=== PATIENT | female | born 1990 | race Caucasian/White ===

== ENCOUNTER 2019-01-27 18:05 | Inpatient (IN) | payer BC ==
[2019-01-27] MEDS ORDERED: AMPICILLIN SODIUM 2 GM VIAL ONE (20:16)
[2019-01-27] MEDS ORDERED: AMPICILLIN - 2 GM in SODIUM CHLORIDE 100 ML IVPB STA (20:30)
[2019-01-27] MEDS ORDERED: BUTORPHANOL TARTRATE 1 MG/ML VIAL ONE ×2 (21:21)
[2019-01-27] MEDS ORDERED: PROMETHAZINE HCL 25 MG/1 ML VIAL ONE (21:21)
[2019-01-27 21:22] LABS: BASO % 0.2 % (0-2.0); EOS % 0.8 % (0-4.5); HEMATOCRIT 36.3 % (32.4-45.2); HEMOGLOBIN 12.8 GM/dL (10.7-15.3); LYMPH % 17.5 % (8-40); MCH 32.7 pg (25.7-33.7); MCHC 35.2 g/dl (32.0-36.0); MEAN CELL VOLUME 92.7 fl (80-96); MEAN PLT VOLUME 8.9 fl (7.5-11.1); MONO % 5.6 % (3.8-10.2); NEUT % 75.9 % (42.8-82.8); PLATELET COUNT 184 K/MM3 (134-434); RBC 3.92 M/mm3 (3.60-5.2); RDW 13.2 % (11.6-15.6); WHITE BLOOD COUNT 10.5 K/mm3 (4.0-10.0)
[2019-01-27] MEDS ORDERED: DEXTROSE 5%-LACTATED RINGERS 1,000 ML IV SCH ×2 (21:45→22:00)
[2019-01-27 21:47] LABS: INR 0.88 (0.83-1.09); PROTHROMBIN TIME (PATIENT) 10.4 SEC (9.7-13.0)
[2019-01-27 21:49] LABS: ANION GAP 9 MMOL/L (8-16); BLOOD UREA NITROGEN 12 mg/dL (7-18); CALCIUM 8.4 mg/dL (8.5-10.1); CHLORIDE 106 mmol/L (98-107); CO2 20 mmol/L (21-32); CREATININE 0.4 mg/dL (0.55-1.3); GLUCOSE,RANDOM 73 mg/dL (74-106); SODIUM 135 mmol/L (136-145)
[2019-01-27] MEDS ORDERED: BUTORPHANOL TARTRATE 1 MG/ML VIAL IVPB ONE (21:55)
[2019-01-27] MEDS ORDERED: PROMETHAZINE HCL 25 MG/1 ML VIAL IVPUSH ONE (21:55)
--- NOTE | 2019-01-27 21:55 | HP ---
Past Medical History - Primary Care Physician PCP:: Juani Rodriguez - Admission Chief Complaint: 29yo 38.3wks with LOF, clear at 7:30am, mild contructions , no VB, + FM History of Present Illness: 1. Cell free DNA- Genetic screening neg 2. GBS pos - for Ampicillin prophylaxis 3. Flu shot given History Source: Patient Limitations to Obtaining History: No Limitations - Past Medical History ...: 1 ...Para: 0 ...Term: 0 ...: 0 ...Spon : 0 ...Induced : 0 ...LMP: 04/29/18 ... Weeks Gestation by Dates: 39 ...EDC by Dates: 02/03/19 ...EDC by Sono: 02/06/19 - Past Surgical History Past Surgical History: Yes: None Hx Myomectomy: No Hx Transabdominal Cerclage: No - Smoking History Have you smoked in the past 12 months: No - Alcohol/Substance Use Hx Alcohol Use: No History of Substance Use: reports: None - Social History Usual Living Arrangement: Yes: With Spouse Home Medications - Allergies Allergies/Adverse Reactions: Allergies Allergy/AdvReac Type Severity Reaction Status Date / Time No Known Allergies Allergy Verified 01/27/19 19:01 - Home Medications Home Medications: Ambulatory Orders Vitamins (Sjr) - 1 tab PO DAILY 10/28/18 Family Disease History - Family Disease History Family History: Denies Review of Systems - Review of Systems Constitutional: reports: No Symptoms Eyes: reports: No Symptoms HENT: reports: No Symptoms Neck: reports: No Symptoms Cardiovascular: reports: No Symptoms Respiratory: reports: No Symptoms Gastrointestinal: reports: No Symptoms Genitourinary: reports: Other (LOF and + contructions) Breasts: reports: No Symptoms Reported Musculoskeletal: reports: No Symptoms Integumentary: reports: No Symptoms Neurological: reports: No Symptoms Endocrine: reports: No Symptoms Hematology/Lymphatic: reports: No Symptoms Psychiatric: reports: No Symptoms Physical Exam - Maternity Vital Signs: Vital Signs Temperature 98.4 F 01/27/19 21:00 Pulse Rate 83 01/27/19 21:00 Respiratory Rate 18 01/27/19 21:00 Blood Pressure 136/71 01/27/19 21:00 O2 Sat by Pulse Oximetry (%) Constitutional: Yes: Well Nourished, No Distress, Calm Eyes: Yes: WNL, Conjunctiva Clear HENT: Yes: WNL, Atraumatic, Normocephalic Neck: Yes: WNL, Supple, Trachea Midline Cardiovascular: Yes: WNL, Regular Rate and Rhythm Lungs: Clear to auscultation Breast(s): Yes: WNL - Abdominal Exam/OB Fundal Height: 38 (EFW 6.5lb) Number of Fetuses: Single Presentation: Vertex Contractions: Yes Regularity: Irregular Intensity: Mild Monitor Mode: External Heart Rate (range): 140s Heart Rate Location: Midline Category: I Accelerations: Uniform Decelerations: None - Vaginal Exam/OB Vaginal Bleediing: No Speculum Exam: No Dilatation (cm): 1 Effacement (%): 80 Amniotic Membrane Status: Ruptured Nitrazine Test: Positive Amniotic Fluid: Yes: Clear Presentation: Vertex/Position Station: -3 - Physical Exam Musculoskeletal: Yes: WNL Extremities: Yes: WNL Edema: No Integumentary: Yes: WNL ...Motor Strength: WNL Psychiatric: Yes: WNL, Alert, Oriented - Labs Lab Results: Apos/RI/HBneg/HIV neg/RPR nr/GCT-81/GBS pos CBC, BMP 01/27/19 20:45 01/27/19 20:45 Assessment/Plan 29yo P1 @ 38.2 wks with PROM, clear fluid in early labor Admit to L&D IVF, Labs Ampicillin for GBS prophylaxis Pain meds Stadol/Phenergan as per patient request MF status reassuring EFW 6.5lb anticipate
[2019-01-27] MEDS ORDERED: OXYTOCIN 30 UNITS in 0.9% NS 30 UNIT/500 ML INFUS.BAG IVPB ONE (22:33)
[2019-01-27] MEDS ORDERED: OXYTOCIN 30 UNITS in 0.9% NS 30 UNIT/500 ML INFUS.BAG IVPB SCH (22:45)
[2019-01-27 23:42] VITALS: BMI 27.1
[2019-01-28] MEDS: AMPICILLIN - 1 GM in SODIUM CHLORIDE 100 ML IVPB SCH ×5 (00:30→14:16)
[2019-01-28] MEDS ORDERED: AMPICILLIN SODIUM 1 GM VIAL ONE ×2 (00:54→04:28)
[2019-01-28] MEDS ORDERED: FENTANYL/BUPIVACAINE/NS/PF - PCEA - 50 ML DISP.SYRIN EP ONE (00:55)
[2019-01-28] MEDS ORDERED: NALOXONE HCL 0.4 MG/ML VIAL IVPUSH PRN (02:36)
[2019-01-28] MEDS ORDERED: FENTANYL/BUPIVACAINE/NS/PF - PCEA - 50 ML DISP.SYRIN EP SCH (02:45)
--- NOTE | 2019-01-28 04:29 | PN ---
Progress Note, Labor Vaginal Exam #1 Labor Exam Date: 01/28/19 Labor Exam Time: 04:05 Heart Rate (range): 140 Dilatation: FD Effacement (%): 100 Amniotic Membrane Status: Ruptured Presentation: Vertex/Position Station: 0 Remarks: Called to evaluate FHR due to two HR decelerations Good variability FHR normalized without any intervention will await passive head descent since overall MF status reassuring
[2019-01-28] MEDS ORDERED: OXYTOCIN 20 UNITS in 0.9% NS 20 UNIT/1,000 ML INFUS.BAG IV ONE ×2 (06:15→08:45)
--- NOTE | 2019-01-28 07:47 | PN ---
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
[2019-01-28] MEDS ORDERED: ACETAMINOPHEN 325 MG TABLET (FP) ONE (10:53)
[2019-01-28] MEDS ORDERED: ACETAMINOPHEN 325 MG TABLET (FP) PO ONE (14:00)
[2019-01-28] MEDS ORDERED: ACETAMINOPHEN 325 MG TABLET (FP) PO PRN (16:24)
[2019-01-28] MEDS: ACETAMINOPHEN/CAFFEINE/BUTALBITAL 1 TAB PO PRN (16:32)
[2019-01-28] MEDS ORDERED: oxyCODONE HCL 5 MG TABLET PO PRN (17:28)
[2019-01-28] MEDS: IBUPROFEN 600 MG TABLET (FP) PO PRN (21:40)
[2019-01-28] MEDS: diphenhydrAMINE HCL 25 MG CAPSULE (FP) PO PRN (21:40)
[2019-01-29] MEDS: IBUPROFEN 600 MG TABLET (FP) PO PRN (07:57)
--- NOTE | 2019-01-29 08:51 | PN ---
Post Progress Note - Subjective Subjective: Patient without acute complaints. Reports tolerating oral intake without nausea or vomiting. Ambulating without dizziness. Denies fevers or chills. Pain well controlled with oral pain medication. without difficulty. Passing flatus. c/o some spinal CONNOR took Fioricet yesterday with some relief Post Day: 1 Type of Delivery: Vital Signs: Vital Signs Temperature 98.2 F 01/28/19 21:38 Pulse Rate 70 01/28/19 21:38 Respiratory Rate 20 01/28/19 21:38 Blood Pressure 121/74 01/28/19 21:38 O2 Sat by Pulse Oximetry (%) 99 01/28/19 06:15 Breast Exam: Yes: Soft Uterus: Yes: Fundus Firm, Non-tender Abdomen/GI: Yes: Abdomen soft, Passing flatus, Tolerating PO Lochia: Yes: Rubra Lochia, amount: Small Extremities: Yes: Calves non-tender Perineum: Yes: Episiotomy Activity: Ambulating - Labs Labs: CBC WBC 10.5 K/mm3 (4.0-10.0) H 01/27/19 20:45 RBC 3.92 M/mm3 (3.60-5.2) 01/27/19 20:45 Hgb 12.8 GM/dL (10.7-15.3) 01/27/19 20:45 Hct 36.3 % (32.4-45.2) 01/27/19 20:45 MCV 92.7 fl (80-96) 01/27/19 20:45 MCH 32.7 pg (25.7-33.7) 01/27/19 20:45 MCHC 35.2 g/dl (32.0-36.0) 01/27/19 20:45 RDW 13.2 % (11.6-15.6) 01/27/19 20:45 Plt Count 184 K/MM3 (134-434) 01/27/19 20:45 MPV 8.9 fl (7.5-11.1) 01/27/19 20:45 Absolute Neuts (auto) 7.9 K/mm3 (1.5-8.0) 01/27/19 20:45 Neutrophils % 75.9 % (42.8-82.8) 01/27/19 20:45 Lymphocytes % 17.5 % (8-40) 01/27/19 20:45 Monocytes % 5.6 % (3.8-10.2) 01/27/19 20:45 Eosinophils % 0.8 % (0-4.5) 01/27/19 20:45 Basophils % 0.2 % (0-2.0) 01/27/19 20:45 Nucleated RBC % 0 % (0-0) 01/27/19 20:45 Assessment/Plan 29yo P 1 now s/p PPD # 1 VSS, Afebrile Doing well Rhpos no need for RhoGam Cont. Fioricet, caffeine for spinal CONNOR - stable otherwise will request Anesthesia assistance continue routine care will follow labs
[2019-01-29] MEDS: ACETAMINOPHEN/CAFFEINE/BUTALBITAL 1 TAB PO PRN ×3 (11:15→20:24)
[2019-01-29 12:55] LABS: BASO % 0.1 % (0-2.0); EOS % 0.7 % (0-4.5); HEMATOCRIT 33.7 % (32.4-45.2); HEMOGLOBIN 11.5 GM/dL (10.7-15.3); LYMPH % 16.1 % (8-40); MCH 32.2 pg (25.7-33.7); MCHC 34.2 g/dl (32.0-36.0); MEAN CELL VOLUME 94.1 fl (80-96); MEAN PLT VOLUME 7.8 fl (7.5-11.1); MONO % 6.6 % (3.8-10.2); NEUT % 76.5 % (42.8-82.8); PLATELET COUNT 168 K/MM3 (134-434); RBC 3.58 M/mm3 (3.60-5.2); RDW 13.3 % (11.6-15.6); WHITE BLOOD COUNT 11.6 K/mm3 (4.0-10.0)
[2019-01-29] MEDS: diphenhydrAMINE HCL 25 MG CAPSULE (FP) PO PRN (20:28)
[2019-01-30] MEDS: ACETAMINOPHEN/CAFFEINE/BUTALBITAL 1 TAB PO PRN ×2 (07:55→12:08)
[2019-01-30 08:12] VITALS: BP 119/69; PULSE 74; TEMP 98
--- NOTE | 2019-01-30 08:58 | PN ---
Progress Note (short form) - Note Progress Note: Procedure Note Epidural blood patch Called to evaluate pt with known post dural puncture headache Consent obtained In steril fashion L3-4 postion lidocaine local 17G tuohy needle x 2 +DOUG -heme or paresthesia 20cc blood from right arm obtained by Dr. Pan Blood injected Pt tolerated procedure well. Pt instructed to lying down for about an hour Instructions given to the nurse in the room Sivakumar Grewal MD
--- NOTE | 2019-01-30 09:47 | DS ---
Physical Exam-DIRECTOR STAGE Vital Signs: Vital Signs Temperature 98 F 01/30/19 08:11 Pulse Rate 74 01/30/19 08:11 Respiratory Rate 18 01/30/19 08:11 Blood Pressure 119/69 01/30/19 08:11 O2 Sat by Pulse Oximetry (%) 99 01/28/19 06:15 Constitutional: Yes: Well Nourished, No Distress, Calm Eyes: Yes: WNL, Conjunctiva Clear HENT: Yes: WNL, Atraumatic, Normocephalic Neck: Yes: WNL, Supple, Trachea Midline Cardiovascular: Yes: WNL, Regular Rate and Rhythm Respiratory: Yes: WNL, Regular, CTA Bilaterally Gastrointestinal: Yes: WNL, Normal Bowel Sounds, Soft Pelvis: Yes: WNL External Genitalia: Yes: Normal Internal Exam Deferred: Yes ....Post : Yes: Uterus firm, Uterus non-tender Breast(s): Yes: WNL Musculoskeletal: Yes: WNL Extremities: Yes: WNL Edema: No Integumentary: Yes: WNL Neurological: Yes: WNL, Alert, Oriented ...Motor Strength: WNL Psychiatric: Yes: WNL, Alert, Oriented Labs: CBC, BMP 01/29/19 12:49 01/27/19 20:45 Delivery - Delivery Vaginal Delivery: No Problems Type of Anesthesia: Epidural Episiotomy/Laceration: Midline EBL (cc): 400 Delivery, Single - Stages of Labor Date 1st Stage Initiatied: 01/28/19 Time 1st Stage Initiated: 00:40 Date 2nd Stage Initiated: 01/28/19 Time 2nd Stage Initiated: 04:05 Date of Delivery: 01/28/19 Time of Delivery: 07:15 Time Placenta Delivered: 07:18 Placenta: Yes: Spontaneous - 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 Gender: Female Weight: 5 lb 14 oz Position: Left, OA Total Hours ROM (Hrs/Mins): 11:45 hours - 1 Minute Total Score: 9 5 Minutes Total Score: 10 - Feeding Plan Initial Plan: Exclusive throughout hospitalization Benefits of Exclusively reinforced: Yes Remarks - Remarks Remarks: Uncomplicated delivery of the head and shoulders Cord blood and tissue collection as per family request Discharge Summary Reason For Visit: LABOR Procedures: Principal: Normal vaginal delivery Hospital Course: complicated by wet tap, requiring blood patch by anesthesia Condition: Good - Instructions Diet, Activity, Other Instructions: Physical activity Resume your normal everyday activity as tolerated no heavy lifting or exercise until seen by your surgeon. You may walk unlimited ananth of and climb stairs. You may resume driving the car when you feel safe and comfortable behind the wheel. No sexual activity as instructed. Wound care If you have a bandage, leave it on, and keep dry for 48-72 hours. After that time discard the outer bandage. If they are tapes on the skin under the out of bandage leave them in place. They will peel off in the next 7 to 10 days. Do Not Peel them off. You may shower the day after surgery. If there are tapes present on the skin, you may shower over them. Diet There are no dietary restrictions. Eat healthy, high-fiber foods. Drink 6 to 8 glasses of liquid each day. This will assist in keeping your bowels are regular. Pain management You may take Tylenol or acetaminophen or Ibuprofen (for example, Motrin, Advil etc.) from my pain prescription medication is ordered should be taken as prescribed for moderate to severe pain. Call MD for any of the following: Severe pain not relieved by medication Fever of 101 or higher Excessive bleeding or drainage on dressing Inability to urinate Referrals: Omar Freeman MD [Staff Physician] - Disposition: HOME - Home Medications Comprehensive Discharge Medication List: Ambulatory Orders Vitamins (Sjr) - 1 tab PO DAILY 10/28/18
--- NOTE | 2019-01-30 09:47 | PN ---
Post Progress Note Post Day: 2 Type of Delivery: Vital Signs: Vital Signs Temperature 98 F 01/30/19 08:11 Pulse Rate 74 01/30/19 08:11 Respiratory Rate 18 01/30/19 08:11 Blood Pressure 119/69 01/30/19 08:11 O2 Sat by Pulse Oximetry (%) 99 01/28/19 06:15 Breast Exam: Yes: Soft Uterus: Yes: Fundus Firm Abdomen/GI: Yes: Abdomen soft Lochia: Yes: Rubra Lochia, amount: Small Extremities: Yes: Calves non-tender Perineum: Yes: Episiotomy Activity: Ambulating - Labs Labs: CBC WBC 11.6 K/mm3 (4.0-10.0) H 01/29/19 12:49 RBC 3.58 M/mm3 (3.60-5.2) L 01/29/19 12:49 Hgb 11.5 GM/dL (10.7-15.3) 01/29/19 12:49 Hct 33.7 % (32.4-45.2) 01/29/19 12:49 MCV 94.1 fl (80-96) 01/29/19 12:49 MCH 32.2 pg (25.7-33.7) 01/29/19 12:49 MCHC 34.2 g/dl (32.0-36.0) 01/29/19 12:49 RDW 13.3 % (11.6-15.6) 01/29/19 12:49 Plt Count 168 K/MM3 (134-434) 01/29/19 12:49 MPV 7.8 fl (7.5-11.1) D 01/29/19 12:49 Absolute Neuts (auto) 8.9 K/mm3 (1.5-8.0) H 01/29/19 12:49 Neutrophils % 76.5 % (42.8-82.8) 01/29/19 12:49 Lymphocytes % 16.1 % (8-40) 01/29/19 12:49 Monocytes % 6.6 % (3.8-10.2) 01/29/19 12:49 Eosinophils % 0.7 % (0-4.5) 01/29/19 12:49 Basophils % 0.1 % (0-2.0) 01/29/19 12:49 Nucleated RBC % 0 % (0-0) 01/29/19 12:49 Assessment/Plan 29yo P 1 now s/p PPD # 2 VSS, Afebrile Doing well Rhpos no need for RhoGam Cont. Fioricet, caffeine for spinal CONNOR -s/p blood patch once feels improved will d/c home
[2019-01-30] MEDS ORDERED: ACETAMINOPHEN 1000 MG/100 ML VIAL (NON FORMULARY) IVPB PRN (13:30)
--- NOTE | 2019-01-30 13:35 | PN ---
Progress Note (short form) - Note Progress Note: Pt still with CONNOR after epidural blood patch. Will restart IV fluids, start on IV ofirmev and IV toradol for now. Would be a good idea to keep tonight for observation rather thatn discharging, with the likelihood of being re-admitted. Will follow
[2019-01-30] MEDS ORDERED: LACTATED RINGERS SOLUTION 1,000 ML/1,000 ML INFUS.BAG IV SCH (13:45)
[2019-01-30] MEDS ORDERED: KETOROLAC TROMETHAMINE 30 MG/1 ML VIAL IVPUSH SCH (14:00)
[2019-01-30] MEDS: KETOROLAC TROMETHAMINE 30 MG/1 ML VIAL IVPUSH SCH ×2 (14:06→18:18)
--- NOTE | 2019-01-30 18:51 | PN ---
Post Progress Note - Subjective Subjective: Feels better after blood patch, spinal CONNOR improved. The pt requested to go home. Post Day: 2 Type of Delivery: Vital Signs: Vital Signs Temperature 98 F 01/30/19 08:11 Pulse Rate 74 01/30/19 08:11 Respiratory Rate 18 01/30/19 08:11 Blood Pressure 119/69 01/30/19 08:11 O2 Sat by Pulse Oximetry (%) 99 01/28/19 06:15 Breast Exam: Yes: Soft Uterus: Yes: Fundus Firm, Fundus below umbilicus, Non-tender Abdomen/GI: Yes: Abdomen soft Lochia: Yes: Rubra Lochia, amount: Small Extremities: Yes: Calves non-tender Perineum: Yes: Intact Activity: Ambulating - Labs Labs: CBC WBC 11.6 K/mm3 (4.0-10.0) H 01/29/19 12:49 RBC 3.58 M/mm3 (3.60-5.2) L 01/29/19 12:49 Hgb 11.5 GM/dL (10.7-15.3) 01/29/19 12:49 Hct 33.7 % (32.4-45.2) 01/29/19 12:49 MCV 94.1 fl (80-96) 01/29/19 12:49 MCH 32.2 pg (25.7-33.7) 01/29/19 12:49 MCHC 34.2 g/dl (32.0-36.0) 01/29/19 12:49 RDW 13.3 % (11.6-15.6) 01/29/19 12:49 Plt Count 168 K/MM3 (134-434) 01/29/19 12:49 MPV 7.8 fl (7.5-11.1) D 01/29/19 12:49 Absolute Neuts (auto) 8.9 K/mm3 (1.5-8.0) H 01/29/19 12:49 Neutrophils % 76.5 % (42.8-82.8) 01/29/19 12:49 Lymphocytes % 16.1 % (8-40) 01/29/19 12:49 Monocytes % 6.6 % (3.8-10.2) 01/29/19 12:49 Eosinophils % 0.7 % (0-4.5) 01/29/19 12:49 Basophils % 0.1 % (0-2.0) 01/29/19 12:49 Nucleated RBC % 0 % (0-0) 01/29/19 12:49 Assessment/Plan 29yo P1 s/p complicated by spinal CONNOR. Now pt improved and feels wel.. She is okay to be discharge. care and precautions discussed. Pt to call MD if CONNOR or any other issues.
== END 2019-01-30 19:00 | disposition home or self-care (01) | DRG 807 ==
LOC: JDEL 18:05 → JLDR 19:45 → J3W 01-28 14:11
PROVIDERS: ADMIT Obstetrics & Gynecology; ATTEND Obstetrics & Gynecology
PROC: 10E0XZZ Delivery of Products of Conception, External Approach (ICD-10-PCS; principal; 2019-01-28)
PROC: 0W8NXZZ Division of Female Perineum, External Approach (ICD-10-PCS; 2019-01-28)
PROC: 3E0R3GC Introduction of Other Therapeutic Substance into Spinal Canal, Percutaneous Approach (ICD-10-PCS; 2019-01-30)
DX: O42.02 Full-term premature rupture of membranes, onset of labor within 24 hours of rupture (principal); Z37.0 Single live birth; O76 Abnormality in fetal heart rate and rhythm complicating labor and delivery; O99.824 Streptococcus B carrier state complicating childbirth; O89.4 Spinal and epidural anesthesia-induced headache during the puerperium; Z3A.38 38 weeks gestation of pregnancy
CPT/HCPCS: 36415; 59025; 59409; 76801-TC; 80048; 85025; 85610; 85730; 86480; 86762; 86850; 86900; 86901

== ENCOUNTER 2019-02-01 09:24 | Emergency (ER) | payer BC ==
[2019-02-01 09:44] VITALS: TEMP 98.3; BMI 25.1
--- NOTE | 2019-02-01 09:51 | PDOC ---
History of Present Illness - General History Source: Patient Exam Limitations: No Limitations - History of Present Illness Initial Comments: 02/01/19 10:04 The patient is a 29 year old female with no past medical history here today for evaluation of headache. The patient reports that she received an epidural during childbirth on 01/28/19 and has had a headache since then. She notes that her headache has been getting worse since then and is worse with standing. She reports getting a blood patch on 01/30/19 and has been taking motrin 800 mg with no relief. Patient denies headache, lightheadedness. Denies fever, chills. Denies chest pain, shortness of breath. Denies nausea, vomiting, diarrhea, abdominal pain. Allergies: NKA PCP: Greg Young <Gab Obrien - Last Filed: 02/01/19 11:07> <Danii Blackwood - Last Filed: 02/01/19 15:10> - General Chief Complaint: Pain Stated Complaint: SENT BY DR. LUQUE Time Seen by Provider: 02/01/19 09:50 Past History <Gab Obrien - Last Filed: 02/01/19 11:07> - Past Medical History Asthma: No Cancer: No Cardiac Disorders: No Diabetes: No HTN: No Seizures: No Thyroid Disease: No - Suicide/Smoking/Psychosocial Hx Smoking History: Unknown if ever smoked Have you smoked in the past 12 months: No Hx Alcohol Use: No Drug/Substance Use Hx: No Hx Substance Use Treatment: No <Danii Blackwood - Last Filed: 02/01/19 15:10> - Past Medical History Allergies/Adverse Reactions: Allergies Allergy/AdvReac Type Severity Reaction Status Date / Time No Known Allergies Allergy Verified 01/27/19 19:01 Home Medications: Ambulatory Orders Acetaminophen/Caffeine/Butalb [Fioricet -] 1 tab PO BID PRN #10 tablet MDD 2 05/17 Review of Systems - Review of Systems Able to Perform ROS?: Yes Comments:: 02/01/19 10:04 GENERAL/CONSTITUTIONAL: +headache. No fever or chills. No weakness. HEAD, EYES, EARS, NOSE AND THROAT: No change in vision. No ear pain or discharge. No sore throat. CARDIOVASCULAR: No chest pain or shortness of breath. RESPIRATORY: No cough, wheezing, or hemoptysis. GASTROINTESTINAL: No nausea, vomiting, diarrhea or constipation. GENITOURINARY: No dysuria, frequency, or change in urination. MUSCULOSKELETAL: No joint or muscle swelling or pain. No neck or back pain. SKIN: No rash NEUROLOGIC: No vertigo, loss of consciousness, or change in strength/sensation. ENDOCRINE: No increased thirst. No abnormal weight change. HEMATOLOGIC/LYMPHATIC: No anemia, easy bleeding, or history of blood clots. ALLERGIC/IMMUNOLOGIC: No hives or skin allergy. <Gab Obrien - Last Filed: 02/01/19 11:07> *Physical Exam - Vital Signs Last Vital Signs Temp Pulse Resp BP Pulse Ox 98.3 F 69 18 125/76 100 02/01/19 09:43 02/01/19 09:43 02/01/19 09:43 02/01/19 09:43 02/01/19 09:43 - Physical Exam Comments: 02/01/19 10:04 GENERAL: The patient appears to be in pain. Patient unable to sit up due to pain. HEAD: Normal with no signs of trauma. EYES: +photophobia, patient wearing sunglasses. PERRLA, EOMI, sclera anicteric, conjunctiva clear. ENT: Ears normal, nares patent, oropharynx clear without exudates. Moist mucous membranes. NECK: Normal range of motion, supple without lymphadenopathy, JVD, or masses. LUNGS: Breath sounds equal, clear to auscultation bilaterally. No wheezes, and no crackles. HEART:Regular rate and rhythm, normal S1 and S2 without murmur, rub or gallop. ABDOMEN: Soft, nontender, normoactive bowel sounds. No guarding, no rebound. No masses palpable. EXTREMITIES: Normal range of motion, no edema. No clubbing or cyanosis. No erythema, or tenderness. NEUROLOGICAL: Cranial nerves II through XII grossly intact. Normal speech. No focal neurological deficits. MUSCULOSKELETAL: Back non-tender to palpation, no CVA tenderness SKIN: Warm, Dry, normal turgor, no rashes or lesions noted. <Gab Obrien - Last Filed: 02/01/19 11:07> - Vital Signs Last Vital Signs Temp Pulse Resp BP Pulse Ox 98.3 F 69 18 125/76 100 02/01/19 09:43 02/01/19 09:43 02/01/19 09:43 02/01/19 09:43 02/01/19 09:43 <Danii Blackwood - Last Filed: 02/01/19 15:10> Moderate Sedation - Procedure Monitoring Vital Signs: Procedure Monitoring Vital Signs Temperature 98.3 F 02/01/19 09:43 Pulse Rate 69 02/01/19 09:43 Respiratory Rate 18 02/01/19 09:43 Blood Pressure 125/76 02/01/19 09:43 O2 Sat by Pulse Oximetry (%) 100 02/01/19 09:43 <aGb Obrien - Last Filed: 02/01/19 11:07> - Procedure Monitoring Vital Signs: Procedure Monitoring Vital Signs Temperature 98.3 F 02/01/19 09:43 Pulse Rate 69 02/01/19 09:43 Respiratory Rate 18 02/01/19 09:43 Blood Pressure 125/76 02/01/19 09:43 O2 Sat by Pulse Oximetry (%) 100 02/01/19 09:43 <Danii Blackwood - Last Filed: 02/01/19 15:10> ED Treatment Course - LABORATORY CBC & Chemistry Diagram: 02/01/19 10:10 02/01/19 10:06 <Gab Obrien - Last Filed: 02/01/19 11:07> - LABORATORY CBC & Chemistry Diagram: 02/01/19 10:10 02/01/19 10:06 <Danii Blackwood - Last Filed: 02/01/19 15:10> Medical Decision Making - Medical Decision Making Call placed at 9:[address] Grewal, spoke to his associate who will try to reach Dr. Grewal. Call placed at 10:[address] Barone, awaiting call back. Call placed to Dr. Barone at 10:50 AM, case discussed. <Gab Obrien - Last Filed: 02/01/19 11:07> - Medical Decision Making 02/01/19 09:55 29 yo F s/p epidural on 01/27 Since that time she has had intractable headache S/p blood patch on 01/30 Pt reports her 02/01/19 09:56 02/01/19 10:[address] Barone Consider MRI r/o dural sinus thrombosis 02/01/19 14:56 Upon re assessment, pt sate she feels much better Pt is upright with no pain Will refil fiorecet 02/01/19 15:04 Laboratory Tests 02/01/19 02/01/19 10:06 10:10 WBC 7.3 Hgb 13.1 Hct 38.0 Plt Count 188 BUN 13 Creatinine 0.5 L <Danii Blackwood - Last Filed: 02/01/19 15:10> *DC/Admit/Observation/Transfer - Attestations Scribe Attestion: 02/01/19 10:05 Documentation prepared by MIKA Fisher, acting as medical cost consultant for Danii Blackwood MD. <Gab Obrien - Last Filed: 02/01/19 11:07> - Discharge Dispostion Decision to Admit order: No <Danii Blackwood - Last Filed: 02/01/19 15:10> Diagnosis at time of Disposition: Post-dural puncture headache - Discharge Dispostion Disposition: HOME Condition at time of disposition: Stable - Referrals Referrals: Greg Young MD [Primary Care Provider] - - Patient Instructions Printed Discharge Instructions: DI for Post-Spinal Puncture Headache Additional Instructions: Thank you for coming in to the ER for re assessment You can take Fiorecet for pain If your symptoms change or worsen, OR if you develop any new symptoms please return to the ER for re assessment
[2019-02-01] MEDS ORDERED: ACETAMINOPHEN 1000 MG/100 ML VIAL (NON FORMULARY) IVPB ONE (09:56)
[2019-02-01] MEDS ORDERED: SODIUM CHLORIDE 1,000 ML IV STA (09:56)
[2019-02-01] MEDS ORDERED: ACETAMINOPHEN/CAFFEINE/BUTALBITAL 1 TAB PO ONE (10:01)
[2019-02-01] MEDS ORDERED: ACETAMINOPHEN/CAFFEINE/BUTALBITAL 1 TAB ONE (10:17)
[2019-02-01 10:18] LABS: BASO % 0.2 % (0-2.0); EOS % 1.2 % (0-4.5); HEMOGLOBIN 13.1 GM/dL (10.7-15.3); LYMPH % 16.9 % (8-40); MCH 32.5 pg (25.7-33.7); MCHC 34.5 g/dl (32.0-36.0); MEAN CELL VOLUME 94.2 fl (80-96); MEAN PLT VOLUME 7.5 fl (7.5-11.1); MONO % 4.5 % (3.8-10.2); NEUT % 77.2 % (42.8-82.8); PLATELET COUNT 188 K/MM3 (134-434); RBC 4.04 M/mm3 (3.60-5.2); RDW 13.1 % (11.6-15.6); WHITE BLOOD COUNT 7.3 K/mm3 (4.0-10.0)
[2019-02-01 11:05] LABS: ALBUMIN 3.2 g/dl (3.4-5.0); ALK PHOS 74 U/L (45-117); ANION GAP 8 MMOL/L (8-16); BILIRUBIN,TOTAL 0.2 mg/dL (0.2-1); BLOOD UREA NITROGEN 13 mg/dL (7-18); CALCIUM 8.4 mg/dL (8.5-10.1); CHLORIDE 107 mmol/L (98-107); CO2 25 mmol/L (21-32); CREATININE 0.5 mg/dL (0.55-1.3); GLUCOSE,RANDOM 88 mg/dL (74-106); POTASSIUM 3.9 mmol/L (3.5-5.1); SGOT/AST 25 U/L (15-37); SGPT/ALT 40 U/L (13-61); SODIUM 140 mmol/L (136-145); TOT PROT 6.7 g/dl (6.4-8.2)
--- NOTE | 2019-02-01 11:28 | PN ---
Progress Note (short form) - Note Progress Note: Anesthesia Called to put an epidural blood patch for pt with known post dural puncture headache. After consent was obtained monitors applied. In sterile fashion 17 G tuoy needle inserted x 2 + Vangie 20cc blood from left arm drawn by ER nurse injected Pt complain of back spasm but subsided Vital signs stable Will reevaluate in the ER. later. Pt tolerated procedure well. Sivakumar Grewal
[2019-02-01] MEDS ORDERED: MAGNESIUM CITRATE 300 ML BOTTLE ONE (15:17)
[2019-02-01 15:34] VITALS: BP 130/65; PULSE 75
== END 2019-02-01 15:32 | disposition home or self-care (01) ==
LOC: JER 09:24
PROC: 3E0337Z Introduction of Electrolytic and Water Balance Substance into Peripheral Vein, Percutaneous Approach (ICD-10-PCS; principal; 2019-02-01)
DX: R51 Headache (principal); G97.1 Other reaction to spinal and lumbar puncture
CPT/HCPCS: 36415; 70450-TC; 80053; 85025; 99284-25; J7030

== ENCOUNTER 2021-08-02 08:42 | Inpatient (IN) | payer BC, OTHER ==
[2021-08-02 10:11] VITALS: BMI 32.6
[2021-08-02 10:27] LABS: BASO % 0.1 % (0-2.0); EOS % 0.3 % (0-4.5); HEMATOCRIT 36.2 % (32.4-45.2); HEMOGLOBIN 12.6 GM/dL (10.7-15.3); LYMPH % 17.3 % (8-40); MCH 31.2 pg (25.7-33.7); MCHC 34.8 g/dl (32.0-36.0); MEAN CELL VOLUME 89.8 fl (80-96); MEAN PLT VOLUME 7.7 fl (7.5-11.1); MONO % 5.6 % (3.8-10.2); NEUT % 76.7 % (42.8-82.8); PLATELET COUNT 187 10^3/uL (134-434); RBC 4.04 M/mm3 (3.60-5.2); RDW 13.2 % (11.6-15.6); WHITE BLOOD COUNT 8.4 K/mm3 (4.0-10.0)
[2021-08-02] MEDS ORDERED: OXYTOCIN 30 UNITS in 0.9% NS 30 UNIT/500 ML INFUS.BAG IVPB ONE (10:27)
[2021-08-02 10:34] LABS: INR 0.92 (0.83-1.09); PROTHROMBIN TIME (PATIENT) 11.4 SEC (9.7-13.0)
[2021-08-02 10:37] LABS: ACTIVATED PTT 25.8 SECONDS (25.2-36.5)
[2021-08-02 10:38] LABS: CALCIUM 8.3 mg/dL (8.5-10.1)
[2021-08-02 10:39] LABS: BLOOD UREA NITROGEN 10.4 mg/dL (7-18)
[2021-08-02] MEDS: OXYTOCIN 30 UNITS in 0.9% NS 30 UNIT/500 ML INFUS.BAG IVPB SCH (10:40)
[2021-08-02] MEDS: DEXTROSE 5%-LACTATED RINGERS 1,000 ML IV SCH (10:40)
[2021-08-02 10:42] LABS: CREATININE 0.4 mg/dL (0.55-1.3)
[2021-08-02] MEDS ORDERED: PROMETHAZINE HCL 25 MG/1 ML VIAL IVPUSH ONE (11:13)
[2021-08-02] MEDS ORDERED: BUTORPHANOL TARTRATE 1 MG/ML VIAL IVPB ONE (11:13)
[2021-08-02] MEDS ORDERED: FENTANYL/BUPIVACAINE/NS/PF - PCEA - 50 ML DISP.SYRIN EP ONE ×2 (13:06→17:40)
[2021-08-02] MEDS ORDERED: NALOXONE HCL 0.4 MG/ML VIAL IVPUSH PRN (13:06)
[2021-08-02] MEDS ORDERED: BUPIVACAINE HCL/PF 0.25% (2.5MG/ML) 10 ML VIAL ONE ×3 (13:07→19:14)
[2021-08-02] MEDS: ELECTROLYTE-148 SOLN 1,000 ML IV SCH ×2 (13:15→18:08)
[2021-08-02] MEDS: FENTANYL/BUPIVACAINE/NS/PF - PCEA - 50 ML DISP.SYRIN EP SCH ×2 (13:20→18:08)
[2021-08-02] MEDS ORDERED: PCA PUMP NR ONE ×2 (17:41→18:05)
[2021-08-02] MEDS ORDERED: OXYTOCIN 20 UNITS in 0.9% NS 20 UNIT/1,000 ML INFUS.BAG IV ONE (19:16)
[2021-08-02] MEDS ORDERED: LIDOCAINE HCL 1% PRESERVATIVE FREE - 30ML VIAL ONE (19:16)
[2021-08-02] MEDS ORDERED: BENZOCAINE 20% 57 GM BOTTLE TP PRN (21:21)
[2021-08-02] MEDS ORDERED: BISACODYL 10 MG SUPP.RECT RC PRN (21:21)
[2021-08-02] MEDS ORDERED: WITCH HAZEL 50% (TUCKS) 40 PAD/JAR PAD TP PRN (21:21)
[2021-08-02] MEDS ORDERED: METHYLERGONOVINE MALEATE 0.2 MG/1 ML AMP IM PRN (21:21)
[2021-08-02] MEDS ORDERED: ACETAMINOPHEN 325 MG TABLET (FP) PO PRN (21:21)
[2021-08-02] MEDS ORDERED: BENZOCAINE 28 GM HEMORRHOIDAL OINTMENT TP PRN (21:21)
[2021-08-02 21:30] LABS: CORD BASE EXCESS -8.3 mmol/L (0-2); CORD HCO3 20.9 mmHg (20-29); CORD PCO2 56.3 mmHg (30-78); CORD pH 7.187 (7.14-7.44)
[2021-08-02] MEDS ORDERED: OXYTOCIN 20 UNITS in 0.9% NS 20 UNIT/1,000 ML INFUS.BAG IV SCH (21:30)
[2021-08-02 21:31] LABS: CORD HCO3 18.4 mmHg (20-29); CORD PCO2 40.7 mmHg (30-78); CORD pH 7.273 (7.14-7.44)
[2021-08-03] MEDS: IBUPROFEN 600 MG TABLET (FP) PO PRN ×3 (07:54→20:49)
[2021-08-03 08:14] LABS: BASO % 0.1 % (0-2.0); EOS % 0.3 % (0-4.5); HEMATOCRIT 33.2 % (32.4-45.2); HEMOGLOBIN 11.6 GM/dL (10.7-15.3); LYMPH % 11.2 % (8-40); MCH 31.4 pg (25.7-33.7); MCHC 34.9 g/dl (32.0-36.0); MEAN CELL VOLUME 89.9 fl (80-96); MEAN PLT VOLUME 7.9 fl (7.5-11.1); MONO % 7.8 % (3.8-10.2); NEUT % 80.6 % (42.8-82.8); PLATELET COUNT 188 10^3/uL (134-434); RBC 3.69 M/mm3 (3.60-5.2); RDW 13.2 % (11.6-15.6); WHITE BLOOD COUNT 13.9 K/mm3 (4.0-10.0)
[2021-08-03] MEDS: PRENATAL VITAMINS W/ FOLIC ACID TABLET (FP) PO SCH (09:47)
[2021-08-03] MEDS: OXYTOCIN 30 UNITS in 0.9% NS 30 UNIT/500 ML INFUS.BAG IVPB SCH (20:26)
[2021-08-03] MEDS: FENTANYL/BUPIVACAINE/NS/PF - PCEA - 50 ML DISP.SYRIN EP SCH (20:26)
[2021-08-03] MEDS: ELECTROLYTE-148 SOLN 1,000 ML IV SCH (21:31)
[2021-08-03] MEDS: DEXTROSE 5%-LACTATED RINGERS 1,000 ML IV SCH (21:31)
[2021-08-03] MEDS: POLYETHYLENE GLYCOL (HEALTHYLAX) 3350 17 GM PACKET PO SCH (21:34)
[2021-08-03] MEDS ORDERED: SENNOSIDES/DOCUSATE COMBO (SENNA PLUS) TABLET (UD) PO PRN (22:00)
[2021-08-04] MEDS: POLYETHYLENE GLYCOL (HEALTHYLAX) 3350 17 GM PACKET PO SCH (09:25)
[2021-08-04] MEDS: PRENATAL VITAMINS W/ FOLIC ACID TABLET (FP) PO SCH (09:25)
[2021-08-04 10:27] VITALS: BP 101/59; PULSE 56; TEMP 98.2
== END 2021-08-04 12:45 | disposition home or self-care (01) | DRG 560 ==
LOC: JLDR 08:42 → J3W 23:20
PROVIDERS: ADMIT Obstetrics & Gynecology; ATTEND Obstetrics & Gynecology
PROC: 10E0XZZ Delivery of Products of Conception, External Approach (ICD-10-PCS; principal; 2021-08-02)
PROC: 3E033VJ Introduction of Other Hormone into Peripheral Vein, Percutaneous Approach (ICD-10-PCS; 2021-08-02)
PROC: 0W8NXZZ Division of Female Perineum, External Approach (ICD-10-PCS; 2021-08-02)
DX: O42.02 Full-term premature rupture of membranes, onset of labor within 24 hours of rupture (principal); Z3A.37 37 weeks gestation of pregnancy; Z37.0 Single live birth; O70.0 First degree perineal laceration during delivery
CPT/HCPCS: 36415; 36600; 59409; 80048; 82803; 85025; 85610; 85730; 86780; 86850; 86900; 86901; C9803; U0003; U0005

== ENCOUNTER 2023-04-02 06:58 | Inpatient (IN) | payer BC ==
[2023-04-02] MEDS: ELECTROLYTE-148 SOLN 1,000 ML IV SCH (07:45)
[2023-04-02] MEDS ORDERED: OXYTOCIN 30 UNITS in 0.9% NS 30 UNIT/500 ML INFUS.BAG IVPB ONE ×2 (08:36→09:00)
[2023-04-02 08:50] LABS: BASO % 0.1 % (0-2.0); EOS % 0.8 % (0-4.5); HEMATOCRIT 35.5 % (32.4-45.2); HEMOGLOBIN 12.6 GM/dL (10.7-15.3); MCH 31.6 pg (25.7-33.7); MCHC 35.5 g/dl (32.0-36.0); MEAN CELL VOLUME 89.1 fl (80-96); MEAN PLT VOLUME 8.8 fl (7.5-11.1); MONO % 6.4 % (3.8-10.2); NEUT % 72.7 % (42.8-82.8); PLATELET COUNT 186 10^3/uL (134-434); RBC 3.98 M/mm3 (3.60-5.2); RDW 13.7 % (11.6-15.6); WHITE BLOOD COUNT 7.7 K/mm3 (4.0-10.0)
[2023-04-02 09:00] LABS: ACTIVATED PTT 28.2 SECONDS (25.2-36.5); INR 0.9 (0.83-1.09); PROTHROMBIN TIME (PATIENT) 10.5 SEC (9.7-13.0)
[2023-04-02 09:11] LABS: POTASSIUM 3.9 mmol/L (3.5-5.1)
[2023-04-02 09:12] LABS: CALCIUM 8.8 mg/dL (8.5-10.1)
[2023-04-02 09:16] LABS: CREATININE 0.4 mg/dL (0.55-1.3)
[2023-04-02 09:28] VITALS: BMI 31.4
[2023-04-02] MEDS ORDERED: OXYTOCIN 30 UNITS in 0.9% NS 30 UNIT/500 ML INFUS.BAG IVPB SCH (10:45)
[2023-04-02] MEDS ORDERED: FENTANYL/BUPIVACAINE/NS/PF - PCEA - 50 ML DISP.SYRIN EP ONE (12:55)
[2023-04-02] MEDS: FENTANYL/BUPIVACAINE/NS/PF - PCEA - 50 ML DISP.SYRIN EP SCH (13:20)
[2023-04-02] MEDS ORDERED: NALOXONE HCL 0.4 MG/ML VIAL IVPUSH PRN (13:30)
[2023-04-02] MEDS ORDERED: BUPIVACAINE HCL/PF 0.25% (2.5MG/ML) 10 ML VIAL ONE (15:12)
[2023-04-02] MEDS ORDERED: LIDOCAINE HCL 1% PRESERVATIVE FREE - 30ML VIAL ONE (16:52)
[2023-04-02] MEDS ORDERED: OXYTOCIN 20 UNITS in 0.9% NS 20 UNIT/1,000 ML INFUS.BAG IV ONE (16:52)
[2023-04-02] MEDS ORDERED: BENZOCAINE 20% 57 GM BOTTLE TP PRN (18:17)
[2023-04-02] MEDS ORDERED: BENZOCAINE 28 GM HEMORRHOIDAL OINTMENT TP PRN (18:17)
[2023-04-02] MEDS ORDERED: WITCH HAZEL 50% (TUCKS) 40 PAD/JAR PAD TP PRN (18:17)
[2023-04-02] MEDS ORDERED: ACETAMINOPHEN 325 MG TABLET (FP) PO PRN (18:17)
[2023-04-02] MEDS ORDERED: BISACODYL 10 MG SUPP.RECT RC PRN (18:17)
[2023-04-02] MEDS ORDERED: METHYLERGONOVINE MALEATE 0.2 MG/1 ML AMP IM PRN (18:17)
[2023-04-02] MEDS ORDERED: oxyCODONE HCL 5 MG TABLET PO PRN (18:17)
[2023-04-02 18:23] LABS: CORD BASE EXCESS -4.3 mmol/L (0-2); CORD HCO3 21.8 mmHg (20-29); CORD PCO2 43.5 mmHg (30-78); CORD pH 7.317 (7.14-7.44)
[2023-04-02] MEDS ORDERED: OXYTOCIN 20 UNITS in 0.9% NS 20 UNIT/1,000 ML INFUS.BAG IV SCH (18:30)
[2023-04-02] MEDS ORDERED: IBUPROFEN 600 MG TABLET (FP) PO ONE (19:29)
[2023-04-02] MEDS: IBUPROFEN 600 MG TABLET (FP) PO PRN (19:30)
[2023-04-02] MEDS ORDERED: diphenhydrAMINE HCL 25 MG CAPSULE (FP) PO ONE (20:45)
[2023-04-03] MEDS: IBUPROFEN 600 MG TABLET (FP) PO PRN ×3 (06:25→21:02)
[2023-04-03 07:11] LABS: BASO % 0.1 % (0-2.0); EOS % 0.7 % (0-4.5); HEMATOCRIT 29.9 % (32.4-45.2); HEMOGLOBIN 10.6 GM/dL (10.7-15.3); LYMPH % 15.5 % (8-40); MCHC 35.5 g/dl (32.0-36.0); MEAN CELL VOLUME 90.1 fl (80-96); MEAN PLT VOLUME 8.7 fl (7.5-11.1); MONO % 8.4 % (3.8-10.2); NEUT % 75.3 % (42.8-82.8); PLATELET COUNT 163 10^3/uL (134-434); RBC 3.32 M/mm3 (3.60-5.2); RDW 13.5 % (11.6-15.6); WHITE BLOOD COUNT 10.4 K/mm3 (4.0-10.0)
[2023-04-03 09:10] VITALS: RESP 18
[2023-04-03] MEDS: PRENATAL VITAMINS W/ FOLIC ACID TABLET (FP) PO SCH (09:46)
[2023-04-03] MEDS: ENOXAPARIN NA (PORCINE) 40 MG/0.4 ML DISP.SYRIN SQ SCH (09:46)
[2023-04-03] MEDS: FENTANYL/BUPIVACAINE/NS/PF - PCEA - 50 ML DISP.SYRIN EP SCH (16:25)
[2023-04-03] MEDS: ELECTROLYTE-148 SOLN 1,000 ML IV SCH (20:23)
[2023-04-03] MEDS ORDERED: diphenhydrAMINE HCL 25 MG CAPSULE (FP) PO ONE (22:00)
[2023-04-03] MEDS ORDERED: SENNOSIDES/DOCUSATE COMBO (SENNA PLUS) TABLET (UD) PO PRN (22:00)
[2023-04-04] MEDS: ENOXAPARIN NA (PORCINE) 40 MG/0.4 ML DISP.SYRIN SQ SCH (09:14)
[2023-04-04] MEDS: IBUPROFEN 600 MG TABLET (FP) PO PRN (09:14)
[2023-04-04] MEDS: PRENATAL VITAMINS W/ FOLIC ACID TABLET (FP) PO SCH (09:14)
[2023-04-04 09:55] VITALS: BP 110/73; PULSE 65; TEMP 98.4
== END 2023-04-04 12:50 | disposition home or self-care (01) | DRG 807 ==
LOC: JLDR 06:58 → J3W 19:40
PROVIDERS: ADMIT Obstetrics & Gynecology; ATTEND Obstetrics & Gynecology
PROC: 10E0XZZ Delivery of Products of Conception, External Approach (ICD-10-PCS; principal; 2023-04-02)
PROC: 0W8NXZZ Division of Female Perineum, External Approach (ICD-10-PCS; 2023-04-02)
DX: O80 Encounter for full-term uncomplicated delivery (principal); Z3A.39 39 weeks gestation of pregnancy; Z37.0 Single live birth
CPT/HCPCS: 36415; 36600; 80048; 82803; 85025; 85610; 85730; 86780; 86850; 86900; 86901; C9803-CS; U0003; U0005